=== PATIENT | female | born 1950 | race Caucasian/White ===

== ENCOUNTER → 2018-11-23 | Outpatient (CLI) | payer OTHER | LOC: EDSTATUS 07:57 → EMCIMAGING 15:12 | PROVIDERS: ATTEND Nurse Practitioner | DX: M50.30 Other cervical disc degeneration, unspecified cervical region (principal) | CPT/HCPCS: 72050-PN ==

== ENCOUNTER → 2018-11-29 | Outpatient (CLI) | payer OTHER | LOC: EMCIMAGING 10:53 | PROVIDERS: ATTEND Nurse Practitioner | DX: R10.9 Unspecified abdominal pain (principal); R35.0 Frequency of micturition | CPT/HCPCS: 76770-PN ==